=== PATIENT | female | born 1945 | race Caucasian/White ===

== ENCOUNTER 2017-11-25 11:39 | Observation (INO) | payer MEDICARE, BC, SELFPAY ==
[2017-11-25 11:45] VITALS: BP 192/114; PULSE 74; RESP 14; TEMP 36.7; O2SAT 100; BMI 20.5
--- NOTE | 2017-11-25 11:58 | DI.CT.S_ITS ---
PROCEDURE: CT HEAD/BRAIN WO CON INDICATIONS: amnesic w/o trauma TECHNIQUE: Noncontrast 4.5 mm thick angled axial sections acquired from the foramen magnum to the vertex, with coronal and sagittal reformats. For radiation dose reduction, the following was used: automated exposure control, adjustment of mA and/or kV according to patient size. COMPARISON: None. FINDINGS: Image quality: Excellent. CSF spaces: Basal cisterns are patent. No extra-axial fluid collections. The ventricles are symmetric in size and shape. Brain: No intracranial bleeds or masses. There is cerebral volume loss for age, with resultant ventricular and sulcal prominence. There are periventricular and deep white matter chronic small vessel ischemic changes. There is intracranial internal carotid artery atherosclerosis. Skull and face: Calvarium and visualized facial bones appear intact, without suspicious lesions. Sinuses: Visualized sinuses and mastoids are clear. IMPRESSION: Normal noncontrast head CT for age. If there is strong clinical suspicion for an acute stroke, please consider an MRI for further evaluation, as it is more sensitive (assuming that there is no contraindication to MRI). Dictated by: Carter Carbajal M.D. on 11/25/2017 at 11:16 Approved by: Carter Carbajal M.D. on 11/25/2017 at 11:17
[2017-11-25 13:04] LABS: Add Manual Diff / Slide Review NO; Basophils Percent Auto 0.5 % (0-2); Eosinophils Percent Auto 0.5 % (2-4); Hematocrit 43.5 % (36-46); Hemoglobin 14.5 g/dL (12.0-16.0); Lymphocytes Percent Auto 17.4 % (25-40); Mean Corpuscular HGB Conc 33.2 % (30-36); Mean Corpuscular Volume 90.1 fL (80-100); Monocytes Percent Auto 6.5 % (3-14); Neutrophils Absolute Auto 6200 /uL (3000-5900); Neutrophils Percent Auto 75.1 % (50-75); Platelet Count 222 X10^3/uL (150-400); Red Blood Cell Count 4.83 X10^6/uL (4.0-5.2); Red Cell Distribution Width 13.7 % (11.6-14.8); White Blood Cell Count 8.3 X10^3/uL (4.5-11.0)
--- NOTE | 2017-11-25 13:12 | ED.NEUROSD ---
HPI - Neuro Symptoms/Deficit General Chief Complaint: Neuro Symptoms/Deficit Stated Complaint: DISORIENTED/LAPSE OF MEMORY Time Seen by Provider: 11/25/17 12:45 Source: patient and family Mode of arrival: ambulatory Limitations: no limitations History of Present Illness HPI Narrative: 72-year-old female brought in today by her for concerns of problems with her memory. She reported by the that the patient woke up this morning was at her normal state health. Patient left at 8 o'clock in the morning to go to a meeting. The states that he thought it was only going to last an hour so our 3 hr later the patient arrived home. When the patient arrived home the patient stated that she did not know where she was. She did not know where she had been. No signs of trauma. The patient's did contact somebody who was at the same eating with the patient and they did state that she was there. This friend did state that the patient looked spacey during the meeting. Patient without any other medical problems. Since arriving home at approximately 11 o'clock this morning patient still has not remembered everything about earlier in the day. The states that he does think that some memories have been returning. It seems to be new memories that she is having problems with. She still remembers her kids names of her date her anniversary of her 's name. Nothing like this has ever happened before. On Anticoagulants: No Related Data Home Medications Medication Instructions Recorded Confirmed Vitamin D3 1 tab PO DAILY #0 08/28/10 11/25/17 [CALCIUM] 1 dose PO DAILY #0 08/28/10 11/25/17 multivitamin 1 tab PO Q DAY #0 08/28/10 11/25/17 atorvastatin 10 mg PO DAILY 11/25/17 11/25/17 Allergies Allergy/AdvReac Type Severity Reaction Status Date / Time No Known Drug Allergies Allergy Verified 11/25/17 11:49 Review of Systems Constitutional Denies chills, Denies fever(s), Denies frequent falls, Denies headache(s) and Denies weakness Eyes Denies blurry vision, Denies diplopia and Denies loss of vision ENT Ears, Nose, Mouth, and Throat: Denies dental pain, Denies vertigo, Denies dizziness, Denies otalgia, Denies headache(s), Denies neck pain and Denies disequilibrium Cardiovascular Denies chest pain, Denies palpitations and Denies dyspnea Respiratory Denies chest congestion and Denies dyspnea Gastrointestinal Gastrointestinal: Denies abdominal pain, Denies diarrhea, Denies nausea and Denies vomiting Genitourinary Denies dysuria Musculoskeletal Denies myalgias, Denies arthralgias, Denies neck pain and Denies numbness Integumentary/Breasts Denies lesions and Denies rash Neurologic Denies abnormal speech, Denies behavioral changes, Reports confusion, Denies vertigo, Denies dizziness, Denies frequent falls, Denies headache(s), Denies loss of vision, Reports memory loss, Denies numbness, Denies other visual disturbances, Denies disequilibrium and Denies weakness Psychiatric Denies behavioral changes, Reports confusion and Reports memory loss Endocrine Denies palpitations Hematologic/Lymphatic Denies easy bleeding and Denies easy bruising [facility] Medical History Healthy adult (Acute) Surgical History No pertinent past surgical history (Acute) Social History Smoking Status: Never smoker Exam Initial Vital Signs Initial Vital Signs: Vital Signs Temperature 98.1 F 11/25/17 11:45 Pulse Rate 74 11/25/17 11:45 Respiratory Rate 14 11/25/17 11:45 Blood Pressure 192/114 H 11/25/17 11:45 Pulse Oximetry 100 11/25/17 11:45 Const General: cooperative, healthy appearing, comfortable, well developed, well groomed and No acute distress Orientation: alert, awake and oriented x3 [facility] Head: normal to inspection, normocephalic and atraumatic Resp Effort & Inspection: normal respiratory effort Auscultation: clear to auscultation bilaterally Cardio Rate: regular rate Rhythm: regular rhythm Pulses: radial pulses present GI Inspection: non-distended Palpation: soft, No firm and No tender Skin Lesions: no lesions Rashes: no rashes Neuro General: alert, awake, oriented x3, moves all extremities, no focal motor deficits and confused Cranial Nerves: CN's II-XI intact bilaterally Cognition: normal cognition Speech: speech normal Gait: normal gait Motor: muscle tone normal throughout Sensory Exam: no sensory deficits noted Other: Patient's GCS of 15. has problems remembering the year, what happened this morning, and the president. The patient's states that she normally knows these. Has a normal neurologic exam otherwise. Extrem General: normal to inspection and capillary refill normal Psych Appearance: grossly normal and well kempt Course Orders Ordered: ED Orders 11/25/17 11:58 CT head/brain wo con Stat 11/25/17 12:47 EKG-12 Lead Stat 11/25/17 12:53 Complete Blood Count AUTO DIFF Stat Comprehensive Metabolic Panel Stat Ethanol (ETOH) Stat Lipase Stat Thyroid Stimulating Hormone Stat 11/25/17 13:15 Ammonia (NH3) Stat Vital Signs - 8 hr 11/25/17 11:45 11/25/17 14:10 Temperature 98.1 F 98.7 F Pulse Rate 74 68 Respiratory Rate 14 14 Blood Pressure 192/114 H Blood Pressure [Right Arm] 140/72 Pulse Oximetry 100 100 MDM - Neuro Symptoms/Deficit Lab Data Attestation: I reviewed the patient's lab results. Result diagrams: 11/25/17 12:53 11/25/17 12:53 Lab Results 11/25/17 11/25/17 11/25/17 Range/Units 12:53 12:53 12:53 WBC 8.3 (4.5-11.0) X10^3/uL RBC 4.83 (4.0-5.2) X10^6/uL Hgb 14.5 (12.0-16.0) g/dL Hct 43.5 (36-46) % MCV 90.1 (80-100) fL MCH 30.0 (26-34) PG MCHC 33.2 (30-36) % RDW 13.7 (11.6-14.8) % Plt Count 222 (150-400) X10^3/uL Neut % (Auto) 75.1 H (50-75) % Lymph % (Auto) 17.4 L (25-40) % [place] % (Auto) 6.5 (3-14) % Eos % (Auto) 0.5 L (2-4) % Baso % (Auto) 0.5 (0-2) % Neut # (Auto) 6200 H (0892-2602) /uL Sodium 144 (137-145) mmol/L Potassium 4.6 (3.4-5.1) mmol/L Chloride 105 (98-107) mmol/L Carbon Dioxide 28 (22-32) mmol/L BUN 19 H (7-17) mg/dL Creatinine 0.80 (0.52-1.04) mg/dL Estimated GFR > 60.0 (>60) mL/min BUN/Creatinine Ratio 23.8 H (6-22) Glucose 91 (80-110) mg/dL Calcium 9.9 (8.4-10.2) mg/dL Total Bilirubin 0.9 (0.2-1.3) mg/dL AST 64 H (14-36) IU/L ALT 22 (9-52) IU/L Alkaline Phosphatase 73 (38-126) U/L Ammonia (9-30) umol/L Total Protein 7.8 (6.3-8.2) g/dL Albumin 4.8 (3.5-5.0) g/dL Globulin 3.0 (1.7-4.1) g/dL Albumin/Globulin Ratio 1.6 (1.0-2.8) Lipase 95 (23-300) U/L TSH 3.78 (0.47-4.68) uIU/mL Ethyl Alcohol < 10 mg/dL 11/25/17 Range/Units 13:15 WBC (4.5-11.0) X10^3/uL RBC (4.0-5.2) X10^6/uL Hgb (12.0-16.0) g/dL Hct (36-46) % MCV (80-100) fL MCH (26-34) PG MCHC (30-36) % RDW (11.6-14.8) % Plt Count (150-400) X10^3/uL Neut % (Auto) (50-75) % Lymph % (Auto) (25-40) % [place] % (Auto) (3-14) % Eos % (Auto) (2-4) % Baso % (Auto) (0-2) % Neut # (Auto) (1606-0521) /uL Sodium (137-145) mmol/L Potassium (3.4-5.1) mmol/L Chloride (98-107) mmol/L Carbon Dioxide (22-32) mmol/L BUN (7-17) mg/dL Creatinine (0.52-1.04) mg/dL Estimated GFR (>60) mL/min BUN/Creatinine Ratio (6-22) Glucose (80-110) mg/dL Calcium (8.4-10.2) mg/dL Total Bilirubin (0.2-1.3) mg/dL AST (14-36) IU/L ALT (9-52) IU/L Alkaline Phosphatase (38-126) U/L Ammonia < 9.0 L (9-30) umol/L Total Protein (6.3-8.2) g/dL Albumin (3.5-5.0) g/dL Globulin (1.7-4.1) g/dL Albumin/Globulin Ratio (1.0-2.8) Lipase (23-300) U/L TSH (0.47-4.68) uIU/mL Ethyl Alcohol mg/dL Imaging Data CT scan - head: Radiologist's impression: [place] [address] CT Scan Report Signed Patient: Milana Donaldson LMR#: [id number] : 5Acct:[id number] Age/Sex: 72 / FDate of Service: 11/25/17 Loc: ED Accession Number: [id number] Procedure: CT head/brain wo con Ordering Provider: Sahil Vieyra D.O. PROCEDURE: CT HEAD/BRAIN WO CON INDICATIONS: amnesic w/o trauma TECHNIQUE: Noncontrast 4.5 mm thick angled axial sections acquired from the foramen magnum to the vertex, with coronal and sagittal reformats. For radiation dose reduction, the following was used: automated exposure control, adjustment of mA and/or kV according to patient size. COMPARISON: None. FINDINGS: Image quality: Excellent. CSF spaces: Basal cisterns are patent. No extra-axial fluid collections. The ventricles are symmetric in size and shape. Brain: No intracranial bleeds or masses. There is cerebral volume loss for age, with resultant ventricular and sulcal prominence. There are periventricular and deep white matter chronic small vessel ischemic changes. There is intracranial internal carotid artery atherosclerosis. Skull and face: Calvarium and visualized facial bones appear intact, without suspicious lesions. Sinuses: Visualized sinuses and mastoids are clear. IMPRESSION: Normal noncontrast head CT for age. If there is strong clinical suspicion for an acute stroke, please consider an MRI for further evaluation, as it is more sensitive (assuming that there is no contraindication to MRI). Dictated by: Carter Carbajal M.D. on 11/25/2017 at 11:16 Approved by: Carter Carbajal M.D. on 11/25/2017 at 11:17 ECG Data Attestation: I personally reviewed and interpreted this ECG as follows: Prior ECG tracings: not available for review Interpretation: Sinus rhythm ventricular rate is 62 Normal QRS line normal QTC normal axis occasional PACs no ST T wave changes MDM Narrative Medical decision making narrative: Head CT unremarkable, patient has a normal neurologic exam except for having memory issues. This does appear to be antegrade amnesia except she does not remember the president in the year. She is hypertensive here in the emergency department. Patient states she is never been this hypertensive in the past. Unsure as the exact onset of the symptoms however given the lack of other focal neurologic findings I feel that a large vessel arterial occlusion is extremely unlikely. Will hold on a CTA for now. Her symptoms could be the result of a TIA, transient global amnesia, hypertensive encephalopathy. Discussed the case with Dr. Monet with Internal Medicine. Will hold on acutely lowering her blood pressure currently. We both agree the patient does need MRI. Will admit the patient. Discussed admission with the patient and her both expressed understanding. Upon my re-evaluation and telling them about the admission the patient was able to tell me the year and the president which she was unable to do prior. Discharge Plan Departure Patient Disposition: Admitted as Observation Clinical Impression: Anterograde amnesia, Hypertension Admit Date/Time: 11/25/17 14:42 Admit Provider: Luana Monet
[2017-11-25 13:24] LABS: Alanine Aminotransferase 22 IU/L (9-52); Albumin 4.8 g/dL (3.5-5.0); Albumin Globulin Ratio 1.6 (1.0-2.8); Alkaline Phosphatase 73 U/L (38-126); Aspartate Aminotransferase 64 IU/L (14-36); BUN Creatinine Ratio 23.8 (6-22); Bilirubin Total 0.9 mg/dL (0.2-1.3); Blood Urea Nitrogen 19 mg/dL (7-17); Calcium 9.9 mg/dL (8.4-10.2); Carbon Dioxide 28 mmol/L (22-32); Chloride 105 mmol/L (98-107); Estimated Glomerular Filt Rate > 60.0 mL/min (>60); Ethanol (ETOH) < 10 mg/dL; Glucose 91 mg/dL (80-110); Lipase 95 U/L (23-300); Potassium 4.6 mmol/L (3.4-5.1); Sodium 144 mmol/L (137-145); Total Protein 7.8 g/dL (6.3-8.2)
[2017-11-25 13:26] LABS: HEMOLYSIS 89 (0-50)
[2017-11-25 13:29] LABS: Ammonia (NH3) < 9.0 umol/L (9-30)
--- NOTE | 2017-11-25 14:09 | PC.NURSE ---
1300: pt to room 13. Continues to have no neuro deficit except for memory loss. Pt does not appear to be making new memories. She does not remember CT/Triage or anything that has occurred after breakfast. Denies pain.
[2017-11-25 14:10] VITALS: BP 140/72; PULSE 68; RESP 14; TEMP 37.1; O2SAT 100
[2017-11-25 14:24] LABS: Thyroid Stimulating Hormone 3.78 uIU/mL (0.47-4.68)
[2017-11-25 15:43] VITALS: BP 141/74; PULSE 74; RESP 18; O2SAT 100
--- NOTE | 2017-11-25 15:43 | PC.NURSE ---
Continues to be neuro intact / NIH 0 / FAST negative except for ongoing short term memory loss. Taking po fluids w/o difficulty. Denies pain.
[2017-11-25 16:22] VITALS: BP 151/52; PULSE 76; RESP 18; TEMP 36.8; O2SAT 96
[2017-11-25 17:00] VITALS: BMI 20.5
--- NOTE | 2017-11-25 17:28 | PM.HP.1 ---
History of Present Illness Date Patient Seen: 11/25/17 Chief complaint: DISORIENTED/LAPSE OF MEMORY Narrative: Patient is a 72 y/o female with a history of hyperlipidemia who was in her usual state of health until earlier today. The patient left her home well/normal went to a board meeting where she was presenting information. By report from an observer the patient reread lines/ and seemed to not make sense. The patient was able to drive herself home. When she arrived home to told her , she did not know what had happened and could not remember how she got home. The patient reports a mild headache, but denies slurred speech, facial weakness, weakness of her arms, legs, numbness tingling, loss of control of her bowel or bladder, seizure like activity. She has never had this happen before. The patient cannot recall the events of earlier today. She had a Head CT which was negative. She is admitted to the hospital for evaluation of transient global amenesia. Patient History Medical History Healthy adult (Acute) Hyperlipidemia (Acute) Surgical History H/O vein stripping (Acute) No pertinent past surgical history (Acute) Family & Social History Family History: Reviewed 11/25/17 by Sahil Vieyra DO Safety & Behavioral: Feels Safe in Current Yes Environment Been Physically Hurt or No Threatened By a Person Tobacco & Substance use: Smoking Status Never smoker alcohol intake frequency 0-2 drinks per day Substance Use Type does not use Meds Home Medications Medication Instructions Recorded Confirmed Type Vitamin D3 1 tab PO DAILY #0 08/28/10 11/25/17 History [CALCIUM] 1 dose PO DAILY #0 08/28/10 11/25/17 History multivitamin 1 tab PO Q DAY #0 08/28/10 11/25/17 History atorvastatin 10 mg PO DAILY 11/25/17 11/25/17 History Allergies Allergy/AdvReac Type Severity Reaction Status Date / Time No Known Drug Allergies Allergy Verified 11/25/17 11:49 Review of Systems Review of Systems All systems reviewed & are unremarkable except as noted in HPI and below Exam Vital Signs (past 8 hours): - 11/25/17 11:45 11/25/17 14:10 11/25/17 15:43 Temperature 98.1 F 98.7 F Pulse Rate 74 68 74 Respiratory Rate 14 14 18 Blood Pressure 192/114 H Blood Pressure [Right Arm] 140/72 141/74 H Pulse Oximetry 100 100 100 Oxygen Delivery Method Room Air Narrative Exam Narrative: Pleasant female awake and alert and in NO acute distress HEENT: NC/AT, PERRLA,EOMI, Oropharyx clear, neck supple Lungs: clear to auscultation CV: RRR nl Sl S2 ABd: Soft/ non tender/ non distended/ no HSM Ext: no edema Neuro: Cranial Nerves intact, no facial droop, tongue midline Speech fluent Strength is symmetric and equal Sensation grossly intact DTR equal, Gait not assessed Finger to nose in tact Visual elizalde intact No pronator drift Psych: she is awake pleasant, oriented to person, place, time, She knows the president. She does not recall the events of the day No delusions or hallucinations Objective Labs Result Diagrams: 11/25/17 12:53 11/25/17 12:53 Labs: Laboratory Results - last 24 hr 11/25/17 11/25/17 11/25/17 12:53 12:53 12:53 WBC 8.3 RBC 4.83 Hgb 14.5 Hct 43.5 MCV 90.1 MCH 30.0 MCHC 33.2 RDW 13.7 Plt Count 222 Neut % (Auto) 75.1 H Lymph % (Auto) 17.4 L [place] % (Auto) 6.5 Eos % (Auto) 0.5 L Baso % (Auto) 0.5 Neut # (Auto) 6200 H Sodium 144 Potassium 4.6 Chloride 105 Carbon Dioxide 28 BUN 19 H Creatinine 0.80 Estimated GFR > 60.0 BUN/Creatinine Ratio 23.8 H Glucose 91 Calcium 9.9 Total Bilirubin 0.9 AST 64 H ALT 22 Alkaline Phosphatase 73 Ammonia Total Protein 7.8 Albumin 4.8 Globulin 3.0 Albumin/Globulin Ratio 1.6 Lipase 95 TSH 3.78 Ethyl Alcohol < 10 11/25/17 13:15 WBC RBC Hgb Hct MCV MCH MCHC RDW Plt Count Neut % (Auto) Lymph % (Auto) [place] % (Auto) Eos % (Auto) Baso % (Auto) Neut # (Auto) Sodium Potassium Chloride Carbon Dioxide BUN Creatinine Estimated GFR BUN/Creatinine Ratio Glucose Calcium Total Bilirubin AST ALT Alkaline Phosphatase Ammonia < 9.0 L Total Protein Albumin Globulin Albumin/Globulin Ratio Lipase TSH Ethyl Alcohol Assessment & Plan (1) Hyperlipidemia: Problem details: Continue Statin Current visit: Yes Status: Acute (2) Anterograde amnesia: Problem details: Obtain Brain MRI to r/o stroke Thiamine 100 mg IV now Current visit: Yes Status: Acute (3) Hypertension: Problem details: treated in the ED, will follow Qualifiers: Hypertension type: unspecified Qualified Code(s): I10 - Essential (primary) hypertension Current visit: Yes Status: Acute Plan: Assessment/Plan Narrative: Asa, will follow up in am DVT prophylaxis full code
[2017-11-25] MEDS: THIAMINE 100 MG in DEXTROSE 5 % IN WATER 50 ML 204 ML IV (19:35)
[2017-11-25] MEDS: DEXTROSE 5%-0.45% NS 1,000 ML 100 ML IV (19:35)
[2017-11-25] MEDS: ASPIRIN 325 MG TABLET PO (19:36)
--- NOTE | 2017-11-25 21:35 | PC.NURSE ---
griffin lazo Pt has no recollection of events today. Pt repeatedly asks what happened. When asked the date, pt smiled and pointed at the white board in the room with the date written on it, and read the date. Pt instructed in use of call light and told to call for assist before getting OOB. Pt did use call light and wait for staff to go to the bathroom, but later when told this, she said she did not remember that.
[2017-11-25] MEDS: ATORVASTATIN 10 MG TABLET PO (21:59)
[2017-11-25 23:10] VITALS: BP 144/64; PULSE 64; RESP 17; TEMP 36.6; O2SAT 98
[2017-11-25 23:43] VITALS: O2SAT 98
--- NOTE | 2017-11-26 | DI.MRI.S_ITS ---
PROCEDURE: MR HEAD/BRAIN WO CON INDICATIONS: Amnesia TECHNIQUE: Non-contrast axial T1 spin echo, axial T2 fast spin echo, sagittal and axial FLAIR, coronal T2 fast spin echo, axial gradient echo, axial diffusion and ADC through the brain. COMPARISON: [facility], CT, CT HEAD/BRAIN WO CON, 11/25/2017, 11:59. FINDINGS: Image quality: Excellent. CSF spaces: Ventricles appear symmetric in size and shape. Basal cisterns are patent. No extra-axial fluid collections. Brain: No intracranial bleeds or mass effects. There is mild cerebral volume loss for age. There are mild periventricular and deep white matter chronic small vessel ischemic changes. Brainstem appears normal. Diffusion-weighted images show no acute ischemic insults. No chronic ischemic insults. Normal intravascular flow voids are present. Skull and face: Calvarial bone marrow is normal in signal. Orbits are normal. Sinuses: Sinuses and mastoids are clear. IMPRESSION: 1. No acute intracranial abnormalities. 2. Cerebral volume loss and chronic microvascular ischemic changes. Dictated by: Anthony Alvarez M.D. on 11/26/2017 at 11:57 Approved by: Anthony Alvarez M.D. on 11/26/2017 at 11:59
[2017-11-26 04:28] VITALS: BP 142/78; PULSE 80; RESP 15; TEMP 36.4; O2SAT 96
[2017-11-26 04:29] VITALS: O2SAT 96
[2017-11-26 05:20] LABS: BUN Creatinine Ratio 18.9 (6-22); Blood Urea Nitrogen 17 mg/dL (7-17); Calcium 9.3 mg/dL (8.4-10.2); Carbon Dioxide 33 mmol/L (22-32); Chloride 106 mmol/L (98-107); Estimated Glomerular Filt Rate > 60.0 mL/min (>60); Glucose 94 mg/dL (80-110); HEMOLYSIS < 15 (0-50); Potassium 4.1 mmol/L (3.4-5.1); Sodium 145 mmol/L (137-145)
[2017-11-26] MEDS: DEXTROSE 5%-0.45% NS 1,000 ML 100 ML IV (06:36)
--- NOTE | 2017-11-26 07:00 | PC.NURSE ---
NOC Shift: Pt pleasant, awake cooperative. Using call light appropriately. BA on for safety. States she feels memory is returning with patchiness. VSS, denies pain. Ambulates to bathroom w/SBA no gait problems noted. NSR on tele. Will have MRI today.
[2017-11-26 07:52] VITALS: BP 144/72; PULSE 60; RESP 18; TEMP 36.7; O2SAT 98
[2017-11-26 08:16] VITALS: O2SAT 98
[2017-11-26] MEDS: INFLUENZA VACCINE 0.5 ML SYRINGE IM (08:57)
[2017-11-26] MEDS: ENOXAPARIN 40 MG/0.4 ML SYRINGE SUBCUT (09:05)
[2017-11-26 13:02] VITALS: BP 134/66; PULSE 62; RESP 16; TEMP 36.8; O2SAT 98
--- NOTE | 2017-11-26 13:47 | P.DS_ITS ---
History of Present Illness Chief complaint: DISORIENTED/LAPSE OF MEMORY Narrative: Patient is a 72 y/o female with a history of hyperlipidemia who was in her usual state of health until earlier today. The patient left her home well /normal went to a board meeting where she was presenting information. By report from an observer the patient reread lines/ and seemed to not make sense. The patient was able to drive herself home. When she arrived home to told her , she did not know what had happened and could not remember how she got home. The patient reports a mild headache, but denies slurred speech, facial weakness, weakness of her arms, legs, numbness tingling, loss of control of her bowel or bladder, seizure like activity. She has never had this happen before. The patient cannot recall the events of earlier today. She had a Head CT which was negative. She is admitted to the hospital for evaluation of transient global amenesia. Discharge Providers Date of admission: 11/25/17 14:42 Primary care physician: Lisa Mcconnell MD Discharge provider: Luana Monet MD Summary Discharge Diagnosis: Transient Global Amnesia Hyperlipidemia Hospital Course: Patient admitted to the hospital with a discrete episode of acute confusion. She was unable to recall events for a defined time period. Her neurological exam was non focal. Patient had a negative Head CT. The following day she had a negative head MRI. Patient was able to recall all events except for a small defined time period where she had no memory. Patient was deemed appropriate for discharge and discharged home. Status at Discharge Cognitive/behavioral status at discharge: Back to baseline Functional status at discharge: independent ambulation Overall status at discharge: patient is back to baseline Time Spent with Patient Less than 30 minutes Exam Vital Signs (past 8 hours): - 11/26/17 07:52 11/26/17 08:16 11/26/17 13:02 Temperature 98.1 F 98.2 F Pulse Rate 60 62 Respiratory Rate 18 16 Blood Pressure 144/72 H 134/66 Pulse Oximetry 98 98 98 Oxygen Delivery Method Room Air Oxygen Flow Rate 0 Narrative Exam Narrative: Awake, alert, appropriate and in No acute distress HEENT: NC/AT, EOMI, speech fluent , no facial weakness Lungs: Clear to auscultation CV: RRR nl S1S2 ABd: soft/ non tender/non distended Ext: no edema Objective Labs Result Diagrams: 11/25/17 12:53 11/26/17 04:48 Labs: Laboratory Results - last 24 hr 11/25/17 11/25/17 11/26/17 12:53 19:40 04:48 Sodium 145 Potassium 4.1 Chloride 106 Carbon Dioxide 33 H BUN 17 Creatinine 0.90 Estimated GFR > 60.0 BUN/Creatinine Ratio 18.9 Glucose 94 Calcium 9.3 TSH 3.78 Nasal Screen MRSA (PCR) Negative for mrsa Discharge Plan Discharge Plan Patient Disposition: Home Discharge Med Rec/Prescriptions Prescriptions: Continue multivitamin Tablet 1 tab PO Q DAY Qty: 0 RF: 0 Vitamin D3 1 tab PO DAILY Qty: 0 RF: 0 [CALCIUM] 1 dose PO DAILY Qty: 0 RF: 0 atorvastatin 10 mg tablet 10 mg PO DAILY RF: 0 Provider Discharge Instructions Diet: Regular Activity: as tolerated Discharge Data Primary Care Provider: Lisa Mcconnell Attending Provider: Luana Monet Admit Date/Time: 11/25/17 14:42 Quality VTE Deep Vein Thrombosis/Pulmonary Embolism Present on Admission: No
== END 2017-11-26 15:02 | disposition home or self-care (01) ==
LOC: ED 14:16 → AC 14:42 → ICU 11-26 11:34
PROVIDERS: Admitting Provider Internal Medicine; Emergency Provider Emergency Medicine; PCP Internal Medicine; Visit Provider Internal Medicine
DX: G45.4 Transient global amnesia (principal); R41.0 Disorientation, unspecified; E78.5 Hyperlipidemia, unspecified; I10 Essential (primary) hypertension
CPT/HCPCS: 36415; 36591; 70450; 70551; 80048; 80053; 80320; 82140; 82962; 83690; 84443; 85025; 87797; 90471; 90656; 93005; 99283; 99285; G0378; J1650; Q2038

== ENCOUNTER → 2018-03-24 07:03 | Outpatient (CLI) | payer MEDICARE, BC, SELFPAY ==
[2018-03-24 09:14] LABS: Alanine Aminotransferase 27 IU/L (9-52); Aspartate Aminotransferase 29 IU/L (14-36); BUN Creatinine Ratio 27.8 (6-22); Blood Urea Nitrogen 25 mg/dL (7-17); Calcium 9.7 mg/dL (8.4-10.2); Carbon Dioxide 29 mmol/L (22-32); Chloride 105 mmol/L (98-107); Cholesterol 157 mg/dL (140-199); Estimated Glomerular Filt Rate > 60.0 mL/min (>60); Glucose 85 mg/dL (80-110); HDL Cholesterol 76 mg/dL (40-60); HEMOLYSIS < 15 (0-50); LDL Cholesterol Calculated 67 mg/dL (<100); Potassium 4.6 mmol/L (3.4-5.1); Sodium 141 mmol/L (137-145); Triglycerides 71 mg/dL (35-150)
== END ==
PROVIDERS: PCP Internal Medicine; Visit Provider Internal Medicine
DX: M81.0 Age-related osteoporosis without current pathological fracture (principal); E78.00 Pure hypercholesterolemia, unspecified
CPT/HCPCS: 36415; 80048; 80061; 84450; 84460

== ENCOUNTER → 2019-04-08 13:47 | Outpatient (CLI) | payer MEDICARE, BC, SELFPAY ==
--- NOTE | 2019-04-08 | DI.MG.S_ITS ---
BILATERAL DIGITAL SCREENING MAMMOGRAM 3D/2D WITH CAD: 04/08/2019 CLINICAL: Routine screening. Comparison is made to exams dated: 02/11/2017 mammogram, 01/18/2014 mammogram, and 01/08/2012 mammogram - [facility]. The tissue of both breasts is heterogeneously dense. This may lower the sensitivity of mammography. Current study was also evaluated with a Computer Aided Detection (CAD) system. No significant masses, calcifications, or other findings are seen in either breast. There has been no significant interval change. IMPRESSION: NEGATIVE There is no mammographic evidence of malignancy. A 1 year screening mammogram is recommended. This exam was interpreted at Station ID: [id number]. NOTE: For mammograms, a report in lay terms will be sent to the patient. Approximately 15% of breast malignancies will not be visualized mammographically. In the management of a palpable breast mass, a negative mammogram must not discourage biopsy of a clinically suspicious lesion. Electronically Signed By: [place] clifton/pam:04/08/2019 17:35:14 letter sent: Normal Exam ACR BI-RADS Category 1: Negative [id number]
== END ==
PROVIDERS: PCP Internal Medicine; Referring Provider Internal Medicine; Visit Provider Internal Medicine
DX: Z12.31 Encounter for screening mammogram for malignant neoplasm of breast (principal)
CPT/HCPCS: 77063; 77067

== ENCOUNTER → 2019-04-16 10:16 | Outpatient (CLI) | payer MEDICARE, BC, SELFPAY | PROVIDERS: PCP Internal Medicine; Referring Provider Internal Medicine; Visit Provider Internal Medicine | DX: M81.0 Age-related osteoporosis without current pathological fracture (principal); Z78.0 Asymptomatic menopausal state; Z82.62 Family history of osteoporosis | CPT/HCPCS: 77080 ==

== ENCOUNTER → 2019-05-08 07:03 | Outpatient (CLI) | payer MEDICARE, BC, SELFPAY ==
[2019-05-08 08:52] LABS: Alanine Aminotransferase 19 IU/L (<35); Aspartate Aminotransferase 34 IU/L (14-36); Blood Urea Nitrogen 31 mg/dL (7-17); Calcium 10.8 mg/dL (8.4-10.2); Carbon Dioxide 31 mmol/L (22-32); Chloride 105 mmol/L (98-107); Cholesterol 266 mg/dL (140-199); Estimated Glomerular Filt Rate 54.2 mL/min (>60); Glucose 88 mg/dL (80-110); HDL Cholesterol 63 mg/dL (40-60); HEMOLYSIS < 15 (0-50); LDL Cholesterol Calculated 176 mg/dL (<100); Potassium 4.9 mmol/L (3.4-5.1); Sodium 142 mmol/L (137-145); Triglycerides 135 mg/dL (35-150)
== END ==
PROVIDERS: PCP Internal Medicine; Referring Provider Internal Medicine; Visit Provider Internal Medicine
DX: M81.0 Age-related osteoporosis without current pathological fracture (principal); E78.00 Pure hypercholesterolemia, unspecified
CPT/HCPCS: 36415; 80048; 80061; 84450; 84460

== ENCOUNTER → 2019-09-02 07:15 | Outpatient (CLI) | payer MEDICARE, BC, SELFPAY ==
[2019-09-02 08:48] LABS: Alanine Aminotransferase 20 IU/L (<35); Albumin 4.2 g/dL (3.5-5.0); Albumin Globulin Ratio 1.6 (1.0-2.8); Alkaline Phosphatase 58 U/L (38-126); Aspartate Aminotransferase 35 IU/L (14-36); BUN Creatinine Ratio 22.7 (6-22); Bilirubin Total 0.5 mg/dL (0.2-1.3); Blood Urea Nitrogen 20 mg/dL (7-17); Calcium 9.6 mg/dL (8.4-10.2); Carbon Dioxide 32 mmol/L (22-32); Chloride 105 mmol/L (98-107); Cholesterol 157 mg/dL (140-199); Estimated Glomerular Filt Rate > 60.0 mL/min (>60); Globulin 2.6 g/dL (1.7-4.1); Glucose 92 mg/dL (80-110); HDL Cholesterol 60 mg/dL (40-60); HEMOLYSIS < 15 (0-50); LDL Cholesterol Calculated 80 mg/dL (<100); Potassium 4.1 mmol/L (3.4-5.1); Sodium 141 mmol/L (137-145); Total Protein 6.8 g/dL (6.3-8.2); Triglycerides 84 mg/dL (35-150)
== END ==
PROVIDERS: PCP Internal Medicine; Referring Provider Internal Medicine; Visit Provider Internal Medicine
DX: N18.2 Chronic kidney disease, stage 2 (mild) (principal); E78.00 Pure hypercholesterolemia, unspecified
CPT/HCPCS: 36415; 80053; 80061

== ENCOUNTER → 2021-12-19 10:51 | Outpatient (CLI) | payer MEDICARE, BC, SELFPAY | PROVIDERS: PCP Internal Medicine; Referring Provider Internal Medicine; Visit Provider Internal Medicine | DX: M81.0 Age-related osteoporosis without current pathological fracture (principal); Z78.0 Asymptomatic menopausal state; Z79.890 Hormone replacement therapy | CPT/HCPCS: 77080 ==

== ENCOUNTER → 2022-05-23 14:23 | Outpatient (CLI) | payer MEDICARE, BC, SELFPAY ==
--- NOTE | 2022-05-23 | DI.MG.S_ITS ---
BILATERAL DIGITAL SCREENING MAMMOGRAM 3D/2D WITH CAD: 05/23/2022 CLINICAL: Routine screening. Comparison is made to exams dated: 04/08/2019 mammogram, 04/08/2019 mammogram, and 02/11/2017 mammogram - [facility]. Both breasts are heterogeneously dense, which may obscure small masses (category c / 51-75% glandular tissue). Current study was also evaluated with a Computer Aided Detection (CAD) system. No significant masses, calcifications, or other findings are seen in either breast. There has been no significant interval change. IMPRESSION: NEGATIVE There is no mammographic evidence of malignancy. A 1 year screening mammogram is recommended. Based on the Tyrer Cuzick model (a risk assessment model) the patient's lifetime risk is 3.7% and her 10 year risk is 0.0%. According to the ACR, ACS, and NCCN guidelines, an annual breast MRI exam along with mammogram is recommended if the patient's lifetime risk is 20% or greater. This exam was interpreted at Station ID: [id number]. NOTE: For mammograms, a report in lay terms will be sent to the patient. Approximately 15% of breast malignancies will not be visualized mammographically. In the management of a palpable breast mass, a negative mammogram must not discourage biopsy of a clinically suspicious lesion. Electronically Signed By: Sheri aguilar/pam:05/23/2022 15:08:11 letter sent: Normal Exam ACR BI-RADS Category 1: Negative [id number]
== END ==
PROVIDERS: PCP Internal Medicine; Referring Provider Internal Medicine; Visit Provider Internal Medicine
DX: Z12.31 Encounter for screening mammogram for malignant neoplasm of breast (principal)
CPT/HCPCS: 77063; 77067

== ENCOUNTER → 2023-12-31 15:07 | Outpatient (CLI) | payer MEDICARE, BC, SELFPAY ==
--- NOTE | 2023-12-31 15:08 | DI.US.S_ITS ---
PROCEDURE: US PELVIC COMPLETE INDICATIONS: POSTMENOPAUSAL BLEED TECHNIQUE: Real-time scanning was performed of the pelvic organs, with image documentation. Additional endovaginal scanning was necessary due to incomplete visualization of the adnexal and endometrial structures by transabdominal scanning. COMPARISON: None. FINDINGS: Uterus: Uterus is anteverted and normal in size at 4.9 x 3.7 x 2.0 cm. The myometrium is heterogeneous. The endometrium measures 1 mm combined thickness. A few small myometrial cysts are seen measuring up to 2 mm. Questionable isoechoic lesion at the anterior cervix measuring 1.6 x 1.2 x 1.3 cm. No significant internal vascularity is seen. Ovaries: Status post right oophorectomy. The left ovary measures 2.3 x 0.9 x 1.1 cm, with a calculated ovarian volume of 1.2 cc. The ovary has a normal sonographic appearance. Less than 12 follicles can be seen in each ovary. No adnexal masses are seen. Other: No pathologic free abdominal or pelvic fluid. IMPRESSION: 1. Endometrial thickness is within normal limits in the setting of postmenopausal bleeding. 2. Questionable 1.6 cm isoechoic lesion in the cervix, possibly a cervical fibroid or artifact. Recommend follow-up ultrasound to demonstrate persistence. If there is suspicion for a cervical malignancy, MRI could be performed for further evaluation. Approved by: Mendez Smith M.D. on 12/31/2023 at 20:19
== END ==
PROVIDERS: PCP Internal Medicine; Referring Provider Internal Medicine; Visit Provider Internal Medicine
DX: N93.9 Abnormal uterine and vaginal bleeding, unspecified (principal); Z90.721 Acquired absence of ovaries, unilateral
CPT/HCPCS: 76830; 76856

== ENCOUNTER → 2024-08-27 16:25 | Outpatient (CLI) | payer MEDICARE, BC, SELFPAY ==
--- NOTE | 2024-08-27 16:27 | DI.US.S_ITS ---
PROCEDURE: US PELVIC COMPLETE INDICATIONS: repeat 6 month ultrasaound for cervical cyst TECHNIQUE: Real-time scanning was performed of the pelvic organs, with image documentation. Additional endovaginal scanning was necessary due to incomplete visualization of the adnexal and endometrial structures by transabdominal scanning. Forty-four images and 1 cine series. COMPARISON: [facility], US, US PELVIC COMPLETE, 12/31/2023, 15:48. FINDINGS: Uterus: Uterus is anteverted and normal in size at 4.9 x 4.0 x 3.0 cm. The myometrium is heterogeneous. The endometrium echo complex measures 3 mm combined thickness. In the cervix there is an ill-defined wall thickening versus cervical mass similar to the prior exam, measuring up to 1.1 x 0.7 x 0.7 cm. Correlation with direct visualization, physical exam or female pelvis MRI may be useful for further evaluation. Ovaries not visualized per notes. Other: No pathologic free abdominal or pelvic fluid. IMPRESSION: Abnormal wall thickening or cervical mass similar to the prior exam as discussed above, follow-up suggested. We strive to produce accurate, complete, and clear reports of imaging services. To assist us in improving patient care, this report was composed using standard report templates and voice recognition software. Therefore, it may contain abnormal punctuation, insertions and/or omissions. Occasional wrong-word or sound-alike substitutions may occur. Though we review the report and make efforts to correct it, we do recommend that the report be read carefully in proper context to recognize any text inaccuracies. Dictated by: Wai Castillo M.D. on 08/28/2024 at 11:36 Approved by: Wai Castillo M.D. on 08/28/2024 at 12:01
== END ==
PROVIDERS: PCP Internal Medicine; Referring Provider Internal Medicine; Visit Provider Family Medicine
DX: N88.8 Other specified noninflammatory disorders of cervix uteri (principal)
CPT/HCPCS: 76830; 76856

== ENCOUNTER → 2025-01-16 08:41 | Outpatient (CLI) | payer MEDICARE, BC, SELFPAY ==
--- NOTE | 2025-01-16 08:42 | DI.MG.S_ITS ---
MM screening mammo BI: 01/16/2025. BI-RADS: 1 CLINICAL: 79-year old female for bilateral screening mammogram. Tyrer-Cuzick lifetime risk of 1.4%. No personal or first-degree family history of breast cancer. PRIOR EXAMS 05/23/2022, 04/08/2019, 02/11/2017. MAMMOGRAPHY TECHNIQUE: 2D and 3D (tomosynthesis) digital mammographic views obtained, with additional images as needed for full coverage. Current study was also evaluated with a Computer Aided Detection (CAD) system. DENSITY C. The breasts are heterogeneously dense, which may obscure small masses. MAMMOGRAPHY FINDINGS Bilateral: No suspicious mass, asymmetry, microcalcification, or other abnormality seen. No significant change from comparison. IMPRESSION: * No evidence of malignancy. RECOMMENDATIONS Bilateral * Annual screening mammography. OVERALL ASSESSMENT CATEGORY BI-RADS-1: Negative. The [employer] recommends annual screening mammography beginning at age 40 for women with average risk of breast cancer. ELECTRONICALLY SIGNED: Rufina Lambert M.D. on 01/18/2025 at 09:02:17 AM PT Interpreting Station ID: [id number]
== END ==
PROVIDERS: PCP Internal Medicine; Referring Provider Internal Medicine; Visit Provider Internal Medicine
DX: Z12.31 Encounter for screening mammogram for malignant neoplasm of breast (principal); R92.333 Mammographic heterogeneous density, bilateral breasts
CPT/HCPCS: 77063; 77067